=== PATIENT | female | born 1960 | race Caucasian/White ===

== ENCOUNTER 2018-06-12 00:42 | Outpatient (CLI) | payer BC | END 2018-06-12 23:59 | disposition home or self-care (01) | LOC: DIABETIC 00:42 | PROVIDERS: ATTEND Family Medicine | DX: E10.9 Type 1 diabetes mellitus without complications (principal); Z88.5 Allergy status to narcotic agent | CPT/HCPCS: G0108 ==

== ENCOUNTER 2018-09-18 00:31 | Outpatient (CLI) | payer BC | END 2018-09-18 23:59 | disposition home or self-care (01) | LOC: DIABETIC 00:31 | PROVIDERS: ATTEND Family Medicine | DX: E10.9 Type 1 diabetes mellitus without complications (principal); Z79.4 Long term (current) use of insulin | CPT/HCPCS: G0108 ==

== ENCOUNTER 2019-06-17 04:41 | Outpatient (CLI) | payer BC | END 2019-06-17 23:59 | disposition home or self-care (01) | LOC: DIABETIC 04:41 | PROVIDERS: ATTEND Family Medicine | DX: E10.9 Type 1 diabetes mellitus without complications (principal); Z79.4 Long term (current) use of insulin | CPT/HCPCS: G0108 ==

== ENCOUNTER 2019-07-26 04:24 | Outpatient (CLI) | payer BC | END 2019-07-26 23:59 | disposition home or self-care (01) | LOC: DIABETIC 04:24 | PROVIDERS: ATTEND Family Medicine | DX: E10.65 Type 1 diabetes mellitus with hyperglycemia (principal); Z79.4 Long term (current) use of insulin; Z88.1 Allergy status to other antibiotic agents | CPT/HCPCS: G0108 ==